=== PATIENT | female | born 1985 | race Caucasian/White ===

== ENCOUNTER 2017-10-16 08:04 | Day surgery (SDC) | payer OTHER ==
[2017-10-14 16:03] LABS: BASOPHILS # (AUTO) 0.04 x10^3/uL (0-0.1); BASOPHILS % (AUTO) 0 % (0-1); EOSINOPHILS # (AUTO) 0.01 x10^3/uL (0-0.4); EOSINOPHILS % (AUTO) 0 % (1-7); LYMPHOCYTES # (AUTO) 1.56 x10^3/uL (1-3.4); LYMPHOCYTES % (AUTO) 13 % (22-44); MD NO; MEAN CORPUSCULAR HEMOGLOBIN 32.2 pg (27.0-34.8); MEAN CORPUSCULAR HGB CONC 35.4 g/dL (32.4-35.8); MEAN PLATELET VOLUME 8.1 fL (7.4-10.4); MONOCYTES # (AUTO) 0.61 x10^3/uL (0.2-0.8); MONOCYTES % (AUTO) 5 % (2-9); NEUTROPHILS # (AUTO) 9.96 x10^3/uL (1.8-6.8); NEUTROPHILS % (AUTO) 82 % (42-75); PLATELET COUNT 357 x10^3/uL (130-400); RED BLOOD COUNT 4.79 x10^6/uL (3.82-5.3); RED CELL DISTRIBUTION WIDTH 11.9 % (9.6-15.2)
[2017-10-14 16:20] LABS: ALKALINE PHOSPHATASE 46 U/L (45-117); BILIRUBIN,TOTAL 0.5 mg/dL (0.2-1.0); TOTAL PROTEIN 8.4 g/dL (6.4-8.2)
[2017-10-14 16:52] LABS: ANION GAP 11 mmol/L (5-15); CHLORIDE 107 mmol/L (98-107); CREATININE 0.54 mg/dL (0.55-1.02)
[2017-10-14 17:05] LABS: ALANINE AMINOTRANSFERASE 19 U/L (12-78); ALBUMIN 4.2 g/dL (3.4-5.0)
[2017-10-14 17:44] LABS: INTERNATIONAL NORMALIZED RATIO 0.98 (0.93-1.1); PROTHROMBIN TIME 10.1 Seconds (9.6-11.5)
[~2017-10-16] VITALS: Ht 152.4 cm; Wt 50.8 kg
[~2017-10-16 08:04] MED LIST: NORE1TAB85 PO
[2017-10-16] MEDS ORDERED: LACTATED RINGERS 1,000 ML IV SCH (08:45)
[2017-10-16 09:16] VITALS: BP 130/85
[2017-10-16] MEDS ORDERED: BUPIVACAINE/PF-EPI 0.5% 1:200K ONE (11:44)
[2017-10-16] MEDS ORDERED: CEFAZOLIN 1,000 MG ONE (12:29)
[2017-10-16] MEDS ORDERED: DEXAMETHASONE 4 MG/ML, 1ML ONE (12:29)
[2017-10-16] MEDS ORDERED: PROPOFOL 10 MG/ML, 20ML ONE (12:29)
[2017-10-16] MEDS ORDERED: ONDANSETRON 2MG/ML, 2ML ONE (12:29)
[2017-10-16] MEDS ORDERED: MIDAZOLAM 1 MG/ML, 2ML ONE (12:30)
[2017-10-16] MEDS ORDERED: FENTANYL PF 100 MCG/2ML ONE ×3 (12:30→13:51)
[2017-10-16] MEDS ORDERED: WATER-INJECTION,STERILE 10 ML IV ONE ×2 (12:33→12:44)
[2017-10-16] MEDS ORDERED: EPHEDRINE 50 MG/ML, 1ML ONE ×2 (12:35→12:44)
[2017-10-16] MEDS ORDERED: MEPERIDINE/PF 25MG/0.5ML IVPush PRN ×2 (13:30)
[2017-10-16] MEDS ORDERED: FENTANYL PF 100 MCG/2ML IV PRN ×2 (13:30)
[2017-10-16] MEDS ORDERED: MIDAZOLAM 1 MG/ML, 2ML IV PRN ×2 (13:30)
[2017-10-16] MEDS ORDERED: LABETALOL 5MG/ML, 20ML IV PRN ×2 (13:30)
[2017-10-16] MEDS ORDERED: ONDANSETRON 2MG/ML, 2ML IVPush PRN ×2 (13:30)
[2017-10-16] MEDS ORDERED: HYDROmorphone 2 MG/ML, 1ML IV PRN ×2 (13:30)
[2017-10-16] MEDS ORDERED: OXYcodone 5 MG/5 ML ORAL.SOL UDC PO PRN ×2 (13:30)
[2017-10-16] MEDS ORDERED: OXYcodone 5 MG/5 ML ORAL.SOL UDC ONE (13:51)
[2017-10-16] MEDS ORDERED: MEPERIDINE/PF 50 MG/ML ONE (14:17)
== END 2017-10-16 16:05 | disposition home or self-care (01) ==
LOC: OUT 08:04 → EDSTATUS 12:00 → OUT 16:05
PROVIDERS: ATTEND Surgery
DX: C43.72 Malignant melanoma of left lower limb, including hip (principal); R59.1 Generalized enlarged lymph nodes; Z72.89 Other problems related to lifestyle
CPT/HCPCS: 11602; 36415; 38760; 78195; 80053; 84703; 85025; 85610; 88307; A9541; J0690; J1100; J2175; J2250; J2405; J2704; J3010